=== PATIENT | female | born 1970 | race Caucasian/White ===

== ENCOUNTER 2019-02-09 04:46 | Day surgery (SDC) | payer BC ==
[2019-01-14 08:58] VITALS: BMI 23.6
--- NOTE | 2019-02-09 08:30 | HP ---
Satellite H - Chief Complaint Chief Complaint: right wrist cyst - Past Medical History Allergies/Adverse Reactions: Allergies Allergy/AdvReac Type Severity Reaction Status Date / Time No Known Allergies Allergy Verified 01/14/19 08:58 ...LMP: 01/12/19 - Current Medications Current Medications: Home Medications Medication Instructions Recorded Alprazolam 0.5 mg PO PRN 01/14/19 Digest Assure 1 tab PO DAILY 01/14/19 Valacyclovir HCl [Valtrex -] 1,000 mg PO PRN 01/14/19 Hydrocodone/Acetaminophen 1 each PO Q6H #20 tablet MDD 4 02/09/19 [Hydrocodone-Acetamin 5-325 mg] Satellite Physical Exam - Physical Examination General Appearance: Well Nourished, Well Developed, Alert & Oriented x3 ENT: Clear Lung: Normal air movement Heart: Regular rate & rhythm Extremities: Other (right wrist- + mass, +ttp, nvi) Neurological: Intact, Alert, Oriented Satellite Impression/Plan - Impression/Plan Impression: right wrist dorsal ganglion cyst Operative Procedure: right wrist ganglion excision Date to be Performed: 02/09/19
[2019-02-09] MEDS ORDERED: oxyCODONE HCL 5 MG TABLET PO PRN (10:36)
[2019-02-09] MEDS ORDERED: ONDANSETRON 4 MG/2 ML VIAL IVPUSH PRN (10:36)
[2019-02-09] MEDS ORDERED: LACTATED RINGERS SOLUTION 1,000 ML IV SCH (10:45)
[2019-02-09] MEDS ORDERED: PROPOFOL 20 ML ONE (10:47)
[2019-02-09] MEDS ORDERED: MIDAZOLAM HCL 2 MG/2 ML SINGLE DOSE VIAL ONE (10:47)
[2019-02-09] MEDS ORDERED: BUPIVACAINE HCL/PF 0.5% (5MG/ML) 10 ML VIAL ONE (10:54)
[2019-02-09] MEDS ORDERED: LIDOCAINE HCL 1%, 10 MG/ML (20ML VIAL) ONE (10:54)
[2019-02-09] MEDS ORDERED: ceFAZolin SODIUM 1 GM VIAL IVPB ONE (11:20)
[2019-02-09] MEDS ORDERED: ceFAZolin SODIUM 1 GM VIAL ONE (11:22)
[2019-02-09] MEDS ORDERED: LIDOCAINE HCL 1%, 10 MG/ML (50 mL VIAL) IJ ONE (11:40)
[2019-02-09] MEDS ORDERED: BUPIVACAINE HCL/PF (5 MG/ML) 30 ML VIAL IJ ONE (11:40)
--- NOTE | 2019-02-09 12:05 | OP ---
Operative Note - Note: Operative Date: 02/09/19 Pre-Operative Diagnosis: mass/ganglion cyst right wrist Operation: excision mass. ganglion cyst right wrist Post-Operative Diagnosis: Same as Pre-op Surgeon: Kaushik Garzon Anesthesiologist/SCALLOP SHUCKER: Patria Patel Anesthesia: Local, MAC Specimens Removed: mass/ganglion right wrist Estimated Blood Loss (mls): 0 Drains, Volume Out (mls): 0 Blood Volume Replaced (mls): 0 Fluid Volume Replaced (mls): 500 Operative Report Dictated: Yes
[2019-02-09 12:20] VITALS: TEMP 97.7
[2019-02-09 14:20] VITALS: BP 126/85; PULSE 82
--- NOTE | 2019-02-09 14:30 | OP ---
DATE OF OPERATION: 02/09/2019 PREOPERATIVE DIAGNOSIS: Right wrist mass; likely ganglion cyst. POSTOPERATIVE DIAGNOSIS: Right wrist mass; likely ganglion cyst. PROCEDURE: Excision mass, right wrist/excision ganglion cyst. SPECIMEN: Mass/ganglion cyst, right wrist. SURGEON: Jason Peter MD ASSISTANTS: None. ANESTHESIOLOGIST: Patria Patel CRNA ANESTHESIA: MAC anesthesia with local injection of 12 mL of 0.5% Marcaine and 1% lidocaine mixed. DRAINS: None. COMPLICATIONS: None. BLOOD LOSS: None. BLOOD GIVEN: None. FLUID REPLACEMENT: 500 mL INDICATIONS FOR PROCEDURE: This patient is a 49-year-old female with a preoperative diagnosis of a recurrent mass on the dorsal aspect of the right wrist. After understanding the potential risks, complications, alternatives, and benefits of surgical versus nonsurgical treatment, the patient elected to undergo this procedure. DESCRIPTION OF PROCEDURE: The patient was brought to the operating room. Peripheral IV placed. IV sedation given. One gram of IV Ancef was given. MAC anesthesia was induced. The right upper extremity was prepped and draped in sterile fashion. A dorsal incision was marked out within Bruce lines and the marking pen. It was about 1 inch in length. Next, 10 mL of 0.5% Marcaine and 1% lidocaine mixture was injected in and around the surgical incision. The entire case was done under 3.8-loupe magnification. The right upper extremity was then elevated, exsanguinated with an Esmarch bandage, and tourniquet inflated to 250 mmHg. A number-15 scalpel blade was utilized to cut down through the skin within Bruce lines. Subcutaneous hemostasis was achieved with a bipolar cautery. Dissection done with a Littler scissors. I was able to identify the abnormal ganglion cyst/mass which was coming up through the dorsal extensor retinaculum. Circumferential dissection was done with the Littler scissors and self-retaining retractors were placed into the wound. Ragnell retractors were placed for additional visualization. A small amount of the dorsal extensor retinaculum was released. I was then able to directly visualize the entire cyst. It was partially decompressed and about the size of a small grape. An Allis clamp was placed on the top of the cyst. At one point, classic, ganglion cyst-type fluid was expressed from it, further confirming the diagnosis. Using the Allis clamp for retraction, I was able to do circumferential dissection around the ganglion cyst to find its stalk, decapitated it at its base, passed it off the field, and I cauterized the base where it went into the dorsal wrist capsule to help prevent future recurrence. The area was copiously irrigated and washed out. I again explored. I did not see or feel any other abnormal tissue. Therefore, it was irrigated and washed out again. Next, 1 mL of 0.5% Marcaine and 1% lidocaine mix was put into the wound. The deep dermal layer closed with 4-0 undyed Vicryl. Final skin reapproximation was done with a running subcuticular 4-0 Biosyn stitch. The area was then washed and dried, covered with Steri-Strips, 4 x 4 gauze, fluffs between the fingers, Webril, and Coban. The tourniquet was taken down after a total tourniquet time of about 18 minutes. There were no complications during the case. The patient tolerated the procedure quite well and was brought to the ambulatory recovery room in stable condition. JASON PETER M.D. [id number]
--- NOTE | 2019-02-10 11:51 | PATH ---
Surgical Pathology Report Patient Name: CHENG MATTHEWS [facility]. Rec. #: [id number] /Age/Gender: 1970 (Age: 49) / F Account: [id number] Location: [facility] SURGICAL Taken: 02/09/2019 Received: 02/09/2019 Reported: 02/10/2019 Physicians: Kaushik Garzon M.D. Specimen(s) Received RIGHT WRIST MASS Clinical History Right wrist dorsal ganglion cyst Final Diagnosis SOFT TISSUE, RIGHT WRIST, EXCISION: GANGLION CYST. Electronically Signed Nate Rosario M.D. Gross Description Received in formalin labeled "right wrist mass," is a 0.9 x 0.8 x 0.3 cm lee-yellow portion of soft tissue, possibly consistent with a ganglion cyst. The specimen is submitted in toto in one cassette. /02/09/201902/09/2019
== END 2019-02-09 14:00 | disposition home or self-care (01) ==
LOC: JASU-SURG 04:46
PROVIDERS: ATTEND Orthopaedic Surgery
PROC: 0LB50ZZ Excision of Right Lower Arm and Wrist Tendon, Open Approach (ICD-10-PCS; principal; 2019-02-09 10:30)
DX: M67.431 Ganglion, right wrist (principal)
CPT/HCPCS: 84703; 88304-TC

== ENCOUNTER 2020-08-20 22:35 | Emergency (ER) | payer BC ==
--- NOTE | 2020-08-20 22:49 | PDOC ---
History of Present Illness - General Chief Complaint: Nausea Stated Complaint: NAUSEA Time Seen by Provider: 08/20/20 22:46 - History of Present Illness Initial Comments: This 50-year-old woman with a history of thyroid lobectomy (age 14) and kidney stones presents with nausea and left flank pain after ESWL of an 8 cm left sided stone earlier today. The procedure was performed earlier today in [place]; patient received prescription for diclofenac for post procedure pain. She states that pain developed this afternoon/earlier this evening and diclofenac was ineffective for relief of the pain. She also is experienced significant nausea. No history of fever/chills. She had small amount of gross hematuria earlier this afternoon which resolved (urine is now clear). No daily medications; patient had thyroid surgery and appendectomy as a child No known allergies Non-smoker; no daily alcohol or other drug use Past History - Medical History Allergies/Adverse Reactions: Allergies Allergy/AdvReac Type Severity Reaction Status Date / Time No Known Allergies Allergy Verified 08/20/20 23:16 Home Medications: Ambulatory Orders Ondansetron [Zofran *Odt*] 4 mg SL BID PRN #6 od.tablet 08/21/20 Oxycodone HCl/Acetaminophen [Percocet 5-325 mg Tablet] 1 tab PO Q6H PRN #10 tablet MDD 4 tabs 08/21/20 Anemia: No Asthma: No Cancer: No Cardiac Disorders: No CVA: Yes COPD: No CHF: No Dementia: No Diabetes: No GI Disorders: No Disorders: Yes (KIDNEY STONES) HTN: No Hypercholesterolemia: No Liver Disease: No Seizures: No Thyroid Disease: No - Surgical History Appendectomy: Yes ( A CHILD) - Immunization History Immunization Up to Date: (UNKNOWN) - Psycho-Social/Smoking History Smoking History: Never smoked Review of Systems - Review of Systems Able to Perform ROS?: Yes Comments:: 12 point review of systems is negative except for what is noted in the history of present illness *Physical Exam - Physical Exam GENERAL: Adult female, alert and oriented x3, mild distress secondary to left flank pain HEAD: Normal with no signs of trauma. EYES: PERRLA, EOMI, sclera anicteric, conjunctiva clear. ENT: Ears normal, nares patent, oropharynx clear without exudates. Dry mucous membranes. NECK: Normal range of motion, supple without lymphadenopathy, JVD, or masses. LUNGS: Breath sounds equal, clear to auscultation bilaterally. No wheezes, and no crackles. HEART:Regular rate and rhythm, normal S1 and S2 without murmur, rub or gallop. ABDOMEN:.normal bowel sounds ;mild left flank tenderness; no guarding or rebound.No masses No distention. EXTREMITIES: Normal range of motion, no edema. No clubbing or cyanosis. No erythema, or tenderness. NEUROLOGICAL: Cranial nerves II through XII grossly intact. Normal speech. No focal neurological deficits. MUSCULOSKELETAL: Back non-tender to palpation, no CVA tenderness SKIN: Warm, Dry, normal turgor, no rashes or lesions noted. Medical Decision Making - Medical Decision Making As noted above, this 50-year-old woman had ESWL performed earlier today for an 8 cm left kidney stone. She now presents with pain in the left flank and nausea. Exam as noted with some mild tenderness in the left flank but no peritoneal signs or masses palpated. IV access was obtained; patient received a liter of normal saline IV as well as 1 mg of Dilaudid IV and 4 mg of Zofran IV. Patient felt significantly better after IV hydration with IV Dilaudid and Zofran administered. Patient will be discharged with prescription for Percocet 5/325 (#10) sent to pharmacy. She should use this for severe pain, 1 tablet every 6 hours; she can use diclofenac as prescribed by her urologist for mild to moderate pain. Also, Zofran ODT 4 mg to be used up to twice a day as needed for residual nausea. She should contact her urologist tomorrow and discuss plans for follow-up. If she has recurrent severe pain or nausea/vomiting or if she develops fever, she should return to the emergency room Discharge - Discharge Information Problems reviewed: Yes Clinical Impression/Diagnosis: Left flank pain Condition: Stable Disposition: HOME - Additional Discharge Information Prescriptions: Oxycodone HCl/Acetaminophen [Percocet 5-325 mg Tablet] 1 tab PO Q6H PRN #10 tablet MDD 4 tabs PRN Reason: Severe Pain Ondansetron [Zofran *Odt*] 4 mg SL BID PRN #6 od.tablet PRN Reason: Nausea - Follow up/Referral Referrals: Daphne Higuera MD [Primary Care Provider] - - Patient Discharge Instructions Patient Printed Discharge Instructions: DI for Extracorporeal Shock Wave Lithotripsy Additional Instructions: Drink plenty of water Diclofenac as needed for mild to moderate pain as prescribed previously Percocet 5/325 up to 4 times a day as needed for severe pain Zofran ODT 4 mg up to twice a day as needed for persistent nausea Return to ER if you have severe, persistent pain/vomiting/fever Follow-up with urologist within the next 2 to 3 days - Post Discharge Activity
[2020-08-20 22:50] VITALS: BP 147/99; PULSE 79; TEMP 98.3; BMI 25.3
[2020-08-20] MEDS ORDERED: HYDROmorphone HCL CARPU-JECT 1 MG/1 ML DISP.SYRIN IM ONE (23:07)
--- OUTSIDE RECORDS SUMMARY | 2020-08-20 23:09 | XMS ---
:1970 Author Organization [facility] Support Name Relationship Address Phone YPS Unavailable [address] [place] [address] ANDREA MATTHEWS MOTHER [address] [place] [phone] Re-disclosure Warning The records that you are about to access may contain information from federally- assisted alcohol or drug abuse programs. If such information is present, then the following federally mandated warning applies: This information has been disclosed to you from records protected by federal confidentiality rules (42 CFR part 2). The federal rules prohibit you from making any further disclosure of this information unless further disclosure is expressly permitted by the written consent of the person to whom it pertains or as otherwise permitted by 42 CFR part 2. A general authorization for the release of medical or other information is NOT sufficient for this purpose. The Federal rules restrict any use of the information to criminally investigate or prosecute any alcohol or drug abuse patient.The records that you are about to access may contain highly sensitive health information, the redisclosure of which is protected by Article 27-F of the [facility] Public Health law. If you continue you may haveaccess to information: Regarding HIV / AIDS; Provided by facilities licensed or operated by the [facility] Office of Mental Health; or Provided by the [facility] Office for People With Developmental Disabilities. If such information is present, then the following [facility] mandated warning applies: This information has been disclosed to you from confidential records which are protected by state law. State law prohibits you from making any further disclosure of this information without the specific written consent of the person to whom it pertains, or as otherwise permitted by law. Any unauthorized further disclosure in violation of state law may result in a fine or longterm sentence or both. A general authorization for the release of medical or other information is NOT sufficient authorization for further disclosure. Insurance Providers Payer name Policy type / Policy ID Covered Covered libertarian's Policy Plan Coverage type libertarian ID relationship to [employer] Information ro[employer] PPO [id number] SP [id number] Results ID Date Data Source [id number] 08/16/2020 10:50:00 AM EDT [facility] Name Value Range Interpretation Description Data Sup porting Code Source(s) Document(s ) SARS [facility] coronavirus 2 RNA [Presence] in Respiratory specimen by NIDA with probe detection This lab was ordered by [facility] and reported by [facility]. ID Date Data Source [id number] 07/16/2020 06:21:00 PM EDT [facility] Name Value Range Interpretation Code Description Data Lauren rce(s) Supporting Document(s ) 2018-nCoV [facility] RNA XXX NIDA+probe- Imp This lab was ordered by [facility] and reported by [facility]. ID Date Data Source [id number] 05/19/2020 09:17:00 AM EDT [facility] Name Value Range Interpretation Code Description Data Lauren rce(s) Supporting Document(s ) 2018-nCoV [facility] RNA XXX NIDA+probe- Imp This lab was ordered by [facility] and reported by [facility]. Procedure
[2020-08-20] MEDS ORDERED: HYDROmorphone HCL CARPU-JECT 1 MG/1 ML DISP.SYRIN IVPUSH ONE (23:17)
[2020-08-20] MEDS ORDERED: ONDANSETRON 4 MG/2 ML VIAL IVPUSH ONE (23:18)
[2020-08-20] MEDS ORDERED: HYDROmorphone HCL CARPU-JECT 1 MG/1 ML DISP.SYRIN ONE (23:18)
[2020-08-20] MEDS ORDERED: ONDANSETRON 4 MG/2 ML VIAL ONE (23:18)
[2020-08-20] MEDS ORDERED: SODIUM CHLORIDE 1,000 ML IV STA (23:19)
== END 2020-08-21 00:33 | disposition home or self-care (01) ==
LOC: FER 22:35
PROC: 3E033NZ Introduction of Analgesics, Hypnotics, Sedatives into Peripheral Vein, Percutaneous Approach (ICD-10-PCS; principal; 2020-08-20)
PROC: 3E033GC Introduction of Other Therapeutic Substance into Peripheral Vein, Percutaneous Approach (ICD-10-PCS; 2020-08-20)
PROC: 3E0337Z Introduction of Electrolytic and Water Balance Substance into Peripheral Vein, Percutaneous Approach (ICD-10-PCS; 2020-08-20)
PROC: 3E023NZ Introduction of Analgesics, Hypnotics, Sedatives into Muscle, Percutaneous Approach (ICD-10-PCS; 2020-08-20)
DX: R10.9 Unspecified abdominal pain (principal)
CPT/HCPCS: 99284-25

== ENCOUNTER 2021-11-08 12:15 | Emergency (ER) | payer BC ==
[2021-11-08 12:44] VITALS: BP 149/90; PULSE 89; TEMP 98.3; BMI 24.5
[2021-11-09 23:07] LABS: SARS-CoV-2 NAA Not Detected (Not Detected)
== END 2021-11-08 12:50 | disposition home or self-care (01) ==
LOC: FER 12:15
DX: R05.1 Acute cough (principal); R09.81 Nasal congestion; R68.83 Chills (without fever)
CPT/HCPCS: 87804; 99283-25; C9803; U0003; U0005